=== PATIENT | male | born 1980 | race Caucasian/White ===

== ENCOUNTER 2019-08-31 09:18 | Emergency (ER) | payer SELFPAY ==
[2019-08-31 09:35] VITALS: O2SAT 99
--- NOTE | 2019-08-31 09:50 | ERPHSYRPT ---
- History of Present Illness Time Seen by Provider: 08/31/19 09:35 Source: patient Exam Limitations: no limitations Patient Subjective Stated Complaint: nose bleed Triage Nursing Assessment: pt to ED c/o nose bleeds intermittently x 2 wks. pt states a car battery fell on his nose at [facility] 2 wks ago and states he thinks battery acid may have gotten in his nose. denies pain at this time. nose is not bleeding currently, states last time it bled was yesterday. no diff breathing or SOB, no foreign body noted. nares appear WLN bilaterally. Physician History: This is a 38-year-old white male who approximately 2 weeks ago was at a [employer] store and was examining a car battery on the shelf. He tilted the battery and battery acid fell onto his face including his nose is not bleeding now. Inside his nostrils and oral cavity. Since that time he has had intermittent blistering in his mouth as well as intermittent nosebleeds. Patient is not on any aspirin or anticoagulation therapy. He has no liver disease. He has no bleeding or clotting disorders. Timing/Duration: intermittent Severity: mild ENT Location: nose Prearrival Treatment: no prearrival treatment Modifying Factors: Improves With: other (Nothing) Associated Symptoms: denies symptoms Allergies/Adverse Reactions: No Known Drug Allergies Allergy (Unverified 08/31/19 09:35) Home Medications: No Reportable Medications [No Reported Medications] 08/31/19 [History] Hx Tetanus, Diphtheria Vaccination/Date Given: Yes Hx Influenza Vaccination/Date Given: No Hx Pneumococcal Vaccination/Date Given: No Travel Risk - International Travel Have you traveled outside of the country in past 3 weeks: No - Coronavirus Screening Are you exhibiting any of the following symptoms?: No Close contact with a COVID-19 positive Pt in past 14-21 Days: No - Review of Systems Constitutional: No Symptoms Eyes: No Symptoms Ears, Nose, & Throat: Epistaxis Respiratory: No Symptoms Cardiac: No Symptoms Abdominal/Gastrointestinal: No Symptoms Genitourinary Symptoms: No Symptoms Musculoskeletal: No Symptoms Skin: No Symptoms Neurological: No Symptoms Psychological: No Symptoms Endocrine: No Symptoms Hematologic/Lymphatic: No Symptoms Immunological/Allergic: No Symptoms All Other Systems: Reviewed and Negative - Past Medical History Pertinent Past Medical History: No Neurological History: No Pertinent History ENT History: No Pertinent History Cardiac History: No Pertinent History Respiratory History: No Pertinent History Endocrine Medical History: No Pertinent History Musculoskeletal History: No Pertinent History GI Medical History: No Pertinent History History: No Pertinent History Psycho-Social History: No Pertinent History Male Reproductive Disorders: No Pertinent History - Past Surgical History Past Surgical History: No Neuro Surgical History: No Pertinent History Cardiac: No Pertinent History Respiratory: No Pertinent History Gastrointestinal: No Pertinent History Genitourinary: No Pertinent History Musculoskeletal: No Pertinent History Male Surgical History: No Pertinent History - Social History Smoking Status: Current every day smoker How long have you smoked: 20+ years Exposure to second hand smoke: Yes Drug Use: none Patient Lives Alone: No - Nursing Vital Signs Nursing Vital Signs: Initial Vital Signs Temperature 98.2 F 08/31/19 09:26 Pulse Rate 97 H 08/31/19 09:26 Respiratory Rate 18 08/31/19 09:26 Blood Pressure 151/100 08/31/19 09:26 O2 Sat by Pulse Oximetry 99 08/31/19 09:26 Pain Scale Pain Intensity 0 - Physical Exam General Appearance: no apparent distress, alert, anxiety Eye Exam: bilateral eye: normal inspection, PERRL, EOMI Ear Exam: bilateral ear: auricle normal, canal normal, TM normal Nasal Exam: normal inspection Throat Exam: normal Neck Exam: normal inspection, non-tender, supple, full range of motion, trachea midline Cardiovascular/Respiratory Exam: chest non-tender Abdominal Exam: non-tender Neurologic Exam: alert, oriented x 3, cooperative, harness inspector II-XII nml as tested, normal mood/affect, nml cerebellar function, nml station & gait, sensation nml Skin Exam: normal color, warm, dry SpO2 Interpretation: normal SpO2: 99 O2 Delivery: Room Air - Course Nursing assessment & vital signs reviewed: Yes - Progress Progress: unchanged Counseled pt/family regarding: diagnosis, need for follow-up - Departure Departure Disposition: Home Clinical Impression: Epistaxis Condition: Stable Critical Care Time: No Additional Instructions: Follow-up with ENT at scheduled appointment time.
[2019-08-31 10:16] VITALS: BP 140/86; PULSE 99
== END 2019-08-31 10:10 | disposition home or self-care (01) ==
LOC: ED 09:18
DX: R04.0 Epistaxis (principal)
CPT/HCPCS: 99283